=== PATIENT | male | born 1960 | race Two or more races ===

== ENCOUNTER 2017-08-14 10:05 | Day surgery (SDC) | payer MEDICARE ==
[2017-08-14] MEDS ORDERED: ONDANSETRON HCL INJ/PF 4 MG/2 ML SDV ONE (10:27)
[2017-08-14] MEDS ORDERED: DIPHENHYDRAMINE HCL 50 MG/ML VIAL ONE (10:27)
[2017-08-14] MEDS ORDERED: NALOXONE HCL INJ/PF 0.4 MG/1 ML SDV ONE (10:28)
[2017-08-14] MEDS ORDERED: FLUMAZENIL INJ 0.5 MG/5 ML VIAL ONE (10:29)
[2017-08-14] MEDS ORDERED: GLUCAGON,HUMAN RECOMB 1 MG INJ ONE (10:29)
[2017-08-14] MEDS ORDERED: EPINEPHRINE INJ 1 MG/10 ML DISP.SYRIN ONE (10:29)
[2017-08-14] MEDS ORDERED: FENTANYL CITRATE INJ/PF 100 MCG/2 ML AMPUL ONE (10:29)
[2017-08-14] MEDS: MIDAZOLAM 2 MG/2 ML INJ ONE ×3 (10:41→10:59)
[2017-08-14] MEDS: FENTANYL CITRATE INJ/PF 100 MCG/2 ML AMPUL ONE ×3 (10:43→10:55)
--- NOTE | 2017-08-14 11:22 | Operative Report ---
Operative Report DATE OF SURGERY: 08/14/17 Operative Report: The risks, benefits and alternatives of the procedure including risks of bleeding, perforation requiring surgery are explained to the patient detail and informed consent was obtained. The patient was taken back to the endoscopy suite and placed in the left, lateral decubital position. Timeout was called. Conscious sedation medications are provided. A rectal examination was done which did not reveal any masses, tears or fissures. An Olympus videoscope was inserted into the patient's rectum. The scope was then gradually advanced all the way to the cecum. The prep is not good. Photodocumentation is obtained. The scope was then sequentially pulled back via the various segments of the colon including the ascending colon, hepatic flexure, transverse colon, splenic flexure, descending colon and finding to the rectosigmoid portions of the colon. Retroflexion maneuver was performed. PREOPERATIVE DIAGNOSIS: Colorectal cancer screening POSTOPERATIVE DIAGNOSIS: Inadequate prep. Mild right side inflammation status post biopsy OPERATION: Colonoscopy with biopsy SURGEON: SEB YI ANESTHESIA: Moderate Sedation - 6 mg of Versed, 125 mcg of fentanyl. Conscious sedation monitoring time 30 minutes. TISSUE REMOVED OR ALTERED: Right side mucosal specimen obtained COMPLICATIONS: None. ESTIMATED BLOOD LOSS: None. INTRAOPERATIVE FINDINGS: Given the prep unable to visualize for small polyps, AVMs. Certainly no obstruction noted. He will need a surveillance colonoscopy in a year PROCEDURE: Patient tolerated procedure well. No immediate postprocedure complications are noted. Patient discharged in good condition. Discharge date 08/14/2017. Discharge diet: Regular. Discharge activity: Regular. 2-3 week follow-up to discuss findings. We will wait on pathology. We do surveillance in 1 year given the inadequate prep. Probably would also recommend having the patient undergo colonoscopy with propofol sedation so that adequate abdominal relaxation can be obtained Patient is instructed to call the office or proceed to the emergency room should there be any further problems or questions.
[2017-08-14 12:21] VITALS: BP 109/71
== END 2017-08-14 12:25 | disposition home or self-care (01) ==
LOC: END 10:05
PROVIDERS: ATTEND Internal Medicine Gastroenterology
PROC: 0DBF8ZX Excision of Right Large Intestine, Via Natural or Artificial Opening Endoscopic, Diagnostic (ICD-10-PCS; principal; 2017-08-14 11:00)
DX: Z12.11 Encounter for screening for malignant neoplasm of colon (principal); K52.9 Noninfective gastroenteritis and colitis, unspecified; F17.210 Nicotine dependence, cigarettes, uncomplicated; Z79.899 Other long term (current) drug therapy
CPT/HCPCS: 45380; 88305 ×2; J2250; J3010; J0171; J1200; J1610; J2310; J2405; J3490

== ENCOUNTER 2019-10-12 12:05 | Emergency (ER) | payer MEDICARE ==
[2019-10-12] MEDS ORDERED: MORPHINE SULFATE 10 MG/ML INJ IV ONE (12:43)
[2019-10-12] MEDS ORDERED: KETOROLAC TROMETHAMINE INJ/PF 30 MG/1 ML SDV IV ONE ×2 (12:43→15:08)
[2019-10-12] MEDS ORDERED: ONDANSETRON HCL INJ/PF 4 MG/2 ML SDV IV ONE (12:43)
--- NOTE | 2019-10-12 12:45 | ER Document Report ---
ED Medical Screen (RME) - General Chief Complaint: Flank Pain Stated Complaint: LEFT SIDE PAIN Time Seen by Provider: 10/12/19 12:42 Mode of Arrival: Wheelchair Information source: Patient Notes: Patient is a 59-year-old male presenting to the emergency department chief complaint of left flank and left lower quadrant pain. Patient reports pain occasionally radiates down into his testicle. Patient reports pain had a sudden onset just a few hours prior to arrival. He denies any dysuria or blood in his urine. He denies any history of kidney stones. Exam: Patient appears to be in acute pain. Tenderness in the left lower quadrant. I have greeted and performed a rapid initial assessment of this patient. A comprehensive ED assessment and evaluation of the patient, analysis of test re sults and completion of the medical decision making process will be conducted by additional ED providers. I have specifically instructed the patient or family members with the patient to immediately return to any nursing staff should anything change in the patient's condition or with their chief complaint. This medical record was dictated with voice recognizing software. There may be grammatical, syntax errors that are unintended. TRAVEL OUTSIDE OF THE [place] IN LAST 30 DAYS: No - Related Data Allergies/Adverse Reactions: No Known Allergies Allergy (Verified 08/14/17 10:03) Home Medications: "cholesterol pills" Past Medical History - Social History Chew tobacco use (# tins/day): No Frequency of alcohol use: None Drug Abuse: None - Past Medical History Cardiac Medical History: Denies: Hx Coronary Artery Disease, Hx Heart Attack, Hx Hypertension Pulmonary Medical History: Denies: Hx Asthma, Hx Bronchitis, Hx COPD, Hx Pneumonia Neurological Medical History: Denies: Hx Cerebrovascular Accident, Hx Seizures Musculoskeltal Medical History: Denies Hx Arthritis - Immunizations Hx Diphtheria, Pertussis, Tetanus Vaccination: No Physical Exam - Vital signs Vitals: Pulse Resp BP Pulse Ox 65 18 149/92 H 99 10/12/19 12:25 10/12/19 12:25 10/12/19 12:25 10/12/19 12:25 Course - Vital Signs Vital signs: Temp Pulse Resp BP Pulse Ox 65 18 149/92 H 99 10/12/19 12:25 10/12/19 12:25 10/12/19 12:25 10/12/19 12:25
--- NOTE | 2019-10-12 13:32 | RADIOLOGY REPORT (SQ) ---
EXAM DESCRIPTION: CT ABD/PELVIS NO ORAL OR IV COMPLETED DATE/TIME: 10/12/2019 1:19 pm REASON FOR STUDY: flank pain COMPARISON: None. TECHNIQUE: CT scan of the abdomen and pelvis performed without intravenous or oral contrast. Images reviewed with lung, soft tissue, and bone windows. Reconstructed coronal and sagittal MPR images revi ewed. All images stored on PACS. All CT scanners at this facility use dose modulation, iterative reconstruction, and/or weight based d osing when appropriate to reduce radiation dose to as low as reasonably achievable (ALARA). [facility]: Dose Right [facility]: CareDose [facility]: Dose Right [facility]: Teradose 4D [facility]: Smart BeMo RADIATION DOSE: CT Rad equipment meets quality standard of care and radiation dose reduction techniq ues were employed. CTDIvol: 18.2 mGy. DLP: 1118 mGy-cm.mGy. LIMITATIONS: None. FINDINGS: LOWER CHEST: No acute findings. NON-CONTRASTED LIVER, SPLEEN, ADRENALS: Evaluation is limited due to the absence of intravenous contr ast. The liver morphology is non cirrhotic. The low attenuation of hepatic parenchyma is suggestive of hepatic steatosis. The spleen is normal in size. There is an accessory splenule in the left upp er quadrant anterior to the spleen. The adrenal glands are symmetric in appearance without a discret e mass. PANCREAS: No acute findings. GALLBLADDER: No abnormality that is apparent on CT. RIGHT KIDNEY AND URETER: Evaluation is limited due to the absence of intravenous contrast. There is no hydronephrosis, nephrolithiasis, hydroureter or ureterolithiasis. LEFT KIDNEY AND URETER: Evaluation is limited due to the absence of intravenous contrast. There is a n obstructive 3 mm calculus within the distal ureter (upstream of the ureterovesicular junction on im age 87 of series 3) that results in upstream hydroureter and hydronephrosis, asymmetric stranding of the periureteric fat, and asymmetric enlargement of the kidney. There is no other renal or ureteral calculus. AORTA AND RETROPERITONEUM: No aneurysmal dilatation of the abdominal aorta. No retroperitoneal adeno genoveva, hemorrhage or mass. BOWEL AND PERITONEAL CAVITY: No acute findings. APPENDIX: Normal. PELVIS, BLADDER, AND ABDOMINAL WALL:The urinary bladder is partially distended. There is no pelvic a denopathy, free fluid or mass. BONES: Degenerative spondylosis and facet arthropathy of the lumbar spine. There is no fracture. OTHER: No other finding. IMPRESSION: 1. Obstructive 3 mm calculus in distal left ureter that results in upstream hydroureter and hydronephrosis, asymmetric stranding of the periureteric fat, and asymmetric enlargement of the l eft kidney. 2. Other secondary findings as detailed above. COMMENT: Quality ID # [id number]: Final reports with documentation of one or more dose reduction techniques (e.g., Automated exposure control, adjustment of the mA and/or kV according to patient size, use of iterative reconstruction technique) TECHNICAL DOCUMENTATION: JOB ID: [id number] [employer]- All Rights Reserved Reading location - IP/workstation name: [email or web address]
[2019-10-12 13:39] LABS: ABSOLUTE LYMPHOCYTES (AUTO) 1.6 10^3/uL (0.5-4.7); ABSOLUTE MONOCYTES (AUTO) 0.5 10^3/uL (0.1-1.4); ABSOLUTE NEUT (AUTO) 6.6 10^3/uL (1.7-8.2); BASOPHILS % (AUTO) 0.3 % (0-2); EOSINOPHILS % (AUTO) 0.5 % (0-6); HEMOGLOBIN 15.4 g/dL (13.5-17.0); LYMPHOCYTES % (AUTO) 18.6 % (13-45); MEAN CORPUSCULAR HEMOGLOBIN 30.6 pg (27.0-33.4); MEAN CORPUSCULAR HGB CONC 33.4 g/dL (32.0-36.0); MEAN CORPUSCULAR VOLUME 92 fl (80-97); MONOCYTES % (AUTO) 5.6 % (3-13); PLATELET COUNT 198 10^3/uL (150-450); RED BLOOD COUNT 5.02 10^6/uL (4.35-5.55); RED CELL DISTRIBUTION WIDTH 15.9 % (11.5-14.0); TOTAL CELLS COUNTED % (AUTO) 100 %; WHITE BLOOD COUNT 8.8 10^3/uL (4.0-10.5)
[2019-10-12 13:59] LABS: ALBUMIN 4.5 g/dL (3.5-5.0); ALKALINE PHOSPHATASE 91 U/L (38-126); ANION GAP 12 (5-19); ASPARTATE AMINO TRANSFERASE 30 U/L (17-59); BILIRUBIN,TOTAL 0.5 mg/dL (0.2-1.3); BLOOD UREA NITROGEN 16 mg/dL (7-20); CALCIUM 9.6 mg/dL (8.4-10.2); CARBON DIOXIDE 22 mmol/L (22-30); CHLORIDE 106 mmol/L (98-107); GLUCOSE 129 mg/dL (75-110); POTASSIUM 4.4 mmol/L (3.6-5.0); TOTAL PROTEIN 7.9 g/dL (6.3-8.2)
[2019-10-12] MEDS ORDERED: NORMAL SALINE 1000 ML 1,000 ML IV ONE (15:08)
--- NOTE | 2019-10-12 15:26 | ER Document Report ---
ED GI/ - General Chief Complaint: Flank Pain Stated Complaint: LEFT SIDE PAIN Time Seen by Provider: 10/12/19 12:42 Primary Care Provider: RUY FERRARO MD [NO LOCAL MD] - Follow up as needed ROSE CLAYTON MD [Primary Care Provider] - Follow up in 3-5 days Mode of Arrival: Wheelchair Notes: Patient is a 59-year-old male who presents to the emergency department with a chief complaint of left flank pain. Patient states that his symptoms started this morning at 10 AM. Describes his pain is a sharp pain. Also had some nausea. He was given Zofran, Toradol, and morphine in triage, but continues to have pain. The pain radiates to front of his abdomen. Patient also has a history of back pain and hyperlipidemia. He is currently on cholesterol medication, pain medications, and muscle relaxers. He cannot recall with the names of the medications are. TRAVEL OUTSIDE OF THE [place] IN LAST 30 DAYS: No - Related Data Allergies/Adverse Reactions: No Known Allergies Allergy (Verified 08/14/17 10:03) Home Medications: "cholesterol pills" Past Medical History - General Information source: Patient - Social History Smoking Status: Never Smoker Chew tobacco use (# tins/day): No Frequency of alcohol use: None Drug Abuse: None Family History: Reviewed & Not Pertinent Patient has suicidal ideation: No Patient has homicidal ideation: No - Past Medical History Cardiac Medical History: Denies: Hx Coronary Artery Disease, Hx Heart Attack, Hx Hypertension Pulmonary Medical History: Denies: Hx Asthma, Hx Bronchitis, Hx COPD, Hx Pneumonia Neurological Medical History: Denies: Hx Cerebrovascular Accident, Hx Seizures Musculoskeletal Medical History: Denies Hx Arthritis - Immunizations Hx Diphtheria, Pertussis, Tetanus Vaccination: No Review of Systems - Review of Systems Notes: REVIEW OF SYSTEMS: CONSTITUTIONAL : Denies recent illness. Denies recent unintentional weight loss. Denies fever, chills, or sweats. EENT: Denies eye, ear, throat, or mouth pain, discharge, or symptoms. Denies nasal or sinus congestion. CARDIOVASCULAR: Denies chest pain. RESPIRATORY: Denies shortness of breath, cough, congestion, difficulty breathing, or wheezing. GASTROINTESTINAL: See HPI. GENITOURINARY: See HPI. MUSCULOSKELETAL: See HPI. Denies joint pain or swelling. SKIN: Denies rash, itchiness, or lesions HEMATOLOGIC : Denies easy bruising or bleeding. LYMPHATIC: Denies swollen, painful, enlarged glands. NEUROLOGICAL: Denies no numbness or tingling denies weakness. Denies headache. Denies altered mental status. Denies alteration in speech. PSYCHIATRIC: Denies stress, anxiety, alteration in sleep patterns, or depression. All other systems reviewed and negative. Physical Exam - Vital signs Vitals: Pulse Resp BP Pulse Ox 65 18 149/92 H 99 10/12/19 12:25 10/12/19 12:25 10/12/19 12:25 10/12/19 12:25 - Notes Notes: PHYSICAL EXAMINATION: GENERAL: Appears well, healthy, well-nourished, mild distress. HEAD: Normocephalic, atraumatic. EYES: PERRL, conjunctiva normal, all extraocular movements intact, sclera nonicteric ENT: Moist mucous membranes. NECK: Supple, no noticeable swelling, redness, rash. Normal range of motion. LUNGS: Equal breath sounds bilaterally and clear to auscultation. No wheezes rales or rhonchi. CARDIOVASCULAR: S1-S2, regular rate, regular rhythm. Radial pulses 2+, normal. ABDOMEN: Normoactive bowel sounds. Soft, nontender, no guarding, no rebound tenderness, and no masses palpated. EXTREMITIES: Normal strength and range of motion, no pitting or edema. No cyanosis. NEUROLOGICAL: Moves all extremities upon command. Strength 5/5 in all extremities. PSYCH: Normal mood, normal affect. SKIN: Warm, dry. No rash, lesions, ulcerations noted. Normal skin turgor. BACK: Left CVA tenderness. Course - Re-evaluation Re-evalutation: 10/12/19 15:56 There is a 3 mm obstructive renal calculi in his distal left ureter with hydroureteronephrosis hydronephrosis. Patient is hematology is normal. His chemistries are normal, lipase is normal. I have called [facility]. Spoke with Jocelyne, from the transfer center. Will receive a call back from Dr. Ferraro. 10/12/19 16:[address] Ferraro, the urologist at [facility]. He is recommending the patient be sent home on Flomax. He does not think the patient needs to be transferred at this time. He is encouraging pain medication. He is to follow-up with the urologist if needed. Urinalysis shows small amount of blood, consistent with his renal calculi. He has a small amount of ketones in his urine, this is being treated with IV fluids. Follow-up precautions were given. Verbal discharge instructions were given to the patient. They verbalized understanding. They are stable for discharge. - Vital Signs Vital signs: Temp Pulse Resp BP Pulse Ox 98.1 F 72 18 159/89 H 99 10/12/19 16:51 10/12/19 16:51 10/12/19 16:51 10/12/19 16:51 10/12/19 16:51 - Laboratory Result Diagrams: 10/12/19 13:03 10/12/19 13:03 Laboratory results interpreted by me: 10/12/19 10/12/19 10/12/19 13:03 13:03 16:12 RDW 15.9 H Glucose 129 H Urine Ketones TRACE H Urine Blood SMALL H Urine Ascorbic Acid 20 H Discharge - Discharge Clinical Impression: Urinary tract obstruction by kidney stone Condition: Stable Disposition: HOME, SELF-CARE Additional Instructions: You were seen today in the emergency department for left flank pain. You have a kidney stone. You are being started on Flomax, medication to help you pass the stone. You are also being started on pain medication. Can take the pain medication as needed. Follow-up with the urologist below. If you develop a fever, have worsening symptoms, or having pain that is not controlled with pain medication, please go to [facility] emergency department. Prescriptions: Hydrocodone/Acetaminophen [[place] 5-325 mg Tablet] 1 tab PO Q4HP PRN #15 tablet PRN Reason: Ibuprofen [Ibu] 600 mg PO Q6HP PRN #30 tablet PRN Reason: Tamsulosin HCl [Flomax 0.4 mg Cap.sr] 0.4 mg PO DAILY #7 cap.sr.24h Forms: Return to Work Referrals: RUY FERRARO MD [NO LOCAL MD] - Follow up as needed ROSE CLAYTON MD [Primary Care Provider] - Follow up in 3-5 days
[2019-10-12] MEDS ORDERED: TAMSULOSIN HCL 0.4 MG CAP.SR.24H PO ONE (16:19)
[2019-10-12 16:41] LABS: APPEARANCE,URINE SLIGHTLY-CLOUDY; BILIRUBIN,URINE NEGATIVE (NEGATIVE); COLOR,URINE YELLOW; GLUCOSE, URINE NEGATIVE (NEGATIVE); KETONES,URINE TRACE mg/dL (NEGATIVE); LEUKOCYTE ESTERASE,URINE NEGATIVE (NEGATIVE); NITRITE,URINE NEGATIVE (NEGATIVE); PROTEIN,URINE NEGATIVE (NEGATIVE); URINE SPECIFIC GRAVITY 1.025; UROBILINOGEN,URINE NEGATIVE mg/dL (<2.0)
[2019-10-12 16:52] VITALS: BP 159/89
== END 2019-10-12 17:00 | disposition home or self-care (01) ==
LOC: ER 12:05
DX: N13.2 Hydronephrosis with renal and ureteral calculous obstruction (principal); R10.9 Unspecified abdominal pain; R11.0 Nausea; R31.9 Hematuria, unspecified; R82.4 Acetonuria; E78.5 Hyperlipidemia, unspecified; M54.9 Dorsalgia, unspecified; Z79.899 Other long term (current) drug therapy
CPT/HCPCS: 36415; 83690; 85025; 80053; 81001; 74176; J1885; J2270; A9270; J2405; J7030; 96361; 96374; 96375; 96376; 99284